=== PATIENT | female | born 1950 | race Asian ===

== ENCOUNTER 2017-11-18 07:48 | Emergency (ER) | payer OTHER ==
[~2017-11-18] VITALS: Ht 162.6 cm; Wt 93.4 kg
[~2017-11-18 07:48] MED LIST: AMLO2.5T PO; CYCL10TA35 PO; FURO20TA67 PO; HYDR10TA47A PO; LISI20TA24 PO; LOVASTATIN20 MG OR
== END 2017-11-18 09:05 | disposition home or self-care (01) ==
LOC: ED 07:48
DX: M54.5 Low back pain (principal)
CPT/HCPCS: 96372; 99283; J1885

== ENCOUNTER 2018-05-06 12:08 | Emergency (ER) | payer OTHER ==
[~2018-05-06] VITALS: Ht 162.6 cm; Wt 93.4 kg
[2018-05-06 12:16] VITALS: TEMP 98.1
[2018-05-06 12:40] VITALS: BP 180/96
== END 2018-05-06 12:45 | disposition home or self-care (01) ==
LOC: ED 12:08
DX: S05.8X2A Other injuries of left eye and orbit, initial encounter (principal); S05.8X1A Other injuries of right eye and orbit, initial encounter; X58.XXXA Exposure to other specified factors, initial encounter; Y92.89 Other specified places as the place of occurrence of the external cause
CPT/HCPCS: 99282

== ENCOUNTER 2018-12-30 14:55 | Outpatient (CLI) | payer OTHER ==
[2018-12-30] MEDS ORDERED: MOBIC7.5 M1 PO (15:11)
[2018-12-30] MEDS ORDERED: AMLODIPINE BESYLATE PO (15:11)
[2018-12-30] MEDS ORDERED: FAMO20TA4 PO (15:12)
[2018-12-30] MEDS ORDERED: LISI20TA31 PO (15:13)
[2018-12-30] MEDS ORDERED: IBU800 MG PO (15:14)
[2018-12-30] MEDS ORDERED: BACLOFEN10 MG PO (15:14)
[2018-12-30] MEDS ORDERED: GABA300C2 PO (15:15)
[2018-12-30] MEDS ORDERED: HYDROCO/APAP1 M1 PO (15:46)
[2018-12-30] MEDS ORDERED: FURO20TA67 PO (15:47)
[2018-12-30] MEDS ORDERED: NARCAN4 MG/0.1 M NAS (15:48)
== END 2018-12-30 14:58 | disposition short-term general hospital (02) ==
LOC: AMB 14:55
DX: R41.82 Altered mental status, unspecified (principal)
CPT/HCPCS: A0425; A0427

== ENCOUNTER 2018-12-30 14:58 | Emergency (ER) | payer OTHER ==
[~2018-12-30] VITALS: Ht 162.6 cm; Wt 93.4 kg
[2018-12-30] MEDS ORDERED: MOBIC7.5 M1 PO (15:11)
[2018-12-30] MEDS ORDERED: AMLODIPINE BESYLATE PO (15:11)
[2018-12-30] MEDS ORDERED: FAMO20TA4 PO (15:12)
[2018-12-30] MEDS ORDERED: LISI20TA31 PO (15:13)
[2018-12-30] MEDS ORDERED: IBU800 MG PO (15:14)
[2018-12-30] MEDS ORDERED: BACLOFEN10 MG PO (15:14)
[2018-12-30] MEDS ORDERED: GABA300C2 PO (15:15)
[2018-12-30 15:41] LABS: PLATELET COUNT 396 K/uL (152-353)
[2018-12-30] MEDS ORDERED: HYDROCO/APAP1 M1 PO (15:46)
[2018-12-30] MEDS ORDERED: FURO20TA67 PO (15:47)
[2018-12-30] MEDS ORDERED: NARCAN4 MG/0.1 M NAS (15:48)
[2018-12-30 20:45] VITALS: BP 191/90; TEMP 97.7
== END 2018-12-30 20:45 | disposition short-term general hospital (02) ==
LOC: ED 15:07
PROVIDERS: Emergency Medicine
PROC: 0T9B70Z Drainage of Bladder with Drainage Device, Via Natural or Artificial Opening (ICD-10-PCS; principal; 2018-12-30)
DX: I10 Essential (primary) hypertension (principal); R41.82 Altered mental status, unspecified
CPT/HCPCS: 51702; 80053; 80307; 80320; 80329; 81000; 82550; 83605; 84484; 85007; 85027; 87040; 93005; 96365; 96375; 96376; 99285; J0360; J0696; J2405; J3490

== ENCOUNTER 2018-12-30 20:55 | Outpatient (CLI) | payer OTHER ==
[~2018-12-30 20:55] MED LIST changes: +AMLODIPINE BESYLATE PO; +BACLOFEN10 MG PO; +FAMO20TA4 PO; +GABA300C2 PO; +HYDROCO/APAP1 M1 PO; +IBU800 MG PO; +LISI20TA31 PO; +MOBIC7.5 M1 PO; +NARCAN4 MG/0.1 M NAS
== END 2018-12-30 22:48 | disposition short-term general hospital (02) ==
LOC: AMB 20:55
DX: I10 Essential (primary) hypertension (principal); R41.82 Altered mental status, unspecified
CPT/HCPCS: A0425; A0429

== ENCOUNTER 2019-03-24 11:03 | Outpatient (CLI) | payer OTHER | END 2019-03-24 19:49 | disposition home or self-care (01) | LOC: CT 11:03 | DX: I10 Essential (primary) hypertension (principal); R19.09 Other intra-abdominal and pelvic swelling, mass and lump | CPT/HCPCS: 36415; 82565; 84520; Q9963 ==

== ENCOUNTER 2019-05-01 16:25 | Emergency (ER) | payer OTHER ==
[~2019-05-01] VITALS: Ht 162.6 cm; Wt 83.9 kg
[2019-05-01 16:47] VITALS: TEMP 97.7
[2019-05-01 18:10] VITALS: BP 167/88
== END 2019-05-01 18:14 | disposition home or self-care (01) ==
LOC: ED 16:25
DX: M79.672 Pain in left foot (principal); M10.9 Gout, unspecified
CPT/HCPCS: 96372; 99282; J1885

== ENCOUNTER 2019-06-08 13:04 | Emergency (ER) | payer OTHER ==
[~2019-06-08] VITALS: Ht 162.6 cm; Wt 81.6 kg
[2019-06-08 13:51] LABS: PLATELET COUNT 282 K/uL (152-353)
[2019-06-08 13:56] LABS: POTASSIUM 4.3 mmol/L (3.6-5.2)
[2019-06-08 14:19] LABS: PARTIAL THROMBOPLASTIN TIME 30.1 SECONDS (24.5-33.6)
[2019-06-08 17:36] VITALS: BP 166/84; TEMP 98.1
== END 2019-06-08 17:48 | disposition short-term general hospital (02) ==
LOC: ED 13:04
PROVIDERS: Hospitalist
DX: N13.6 Pyonephrosis (principal)
CPT/HCPCS: 36415; 80053; 81000; 82150; 83605; 83690; 85007; 85027; 85610; 85730; 87040; 93005; 96360; 96361; 96365; 96366; 96375; 99284; J1956; J2405; J3490

== ENCOUNTER 2019-06-08 17:47 | Outpatient (CLI) | payer OTHER | END 2019-06-08 18:17 | disposition short-term general hospital (02) | LOC: AMB 17:47 | DX: R10.84 Generalized abdominal pain (principal); N20.0 Calculus of kidney | CPT/HCPCS: A0425; A0429 ==

== ENCOUNTER 2019-07-03 09:44 | Outpatient (CLI) | payer OTHER | END 2019-07-03 21:50 | disposition home or self-care (01) | LOC: LAB 09:44 | DX: R50.9 Fever, unspecified (principal) | CPT/HCPCS: 81000; 87077; 87086; 87088; 87186 ==